=== PATIENT | female | born 2000 | race Caucasian/White ===

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

== ENCOUNTER 2019-02-02 23:22 | Inpatient (IN) ==
[2019-02-02 20:56] LABS: Amphetamine Screen,Urine Negative ng/mL (Cutoff=1000); Barbiturate Screen,Urine Negative ng/mL (Cutoff=200); Benzodiazepines Screen,Urine Negative ng/mL (Cutoff=200); Cannabinoid Screen,Urine Positive ng/mL (Cutoff = 50); Cocaine Screen,Urine Negative ng/mL (Cutoff= 300); Opiate Screen,Urine Negative ng/mL (Cutoff=300); Phencyclidine Screen,Urine Negative ng/mL (Cutoff=25)
[~2019-02-02 23:22] MED LIST: *HR* Nalbuphine 10 MG/ML AMPUL IVP PRN; Famotidine 20 MG/2 ML VIAL IVP PRN; Lidocaine 1% 20 ML MDV INFILT PRN; Metoclopramide 10 MG/2 ML VIAL IVP PRN; Naloxone 0.4 MG/ML INJ IVP PRN; Ondansetron 4 MG/2 ML VIAL IVP PRN; miSOPROStoL 25 MCG TABLET PO PRN
[2019-02-02] MEDS ORDERED: Ringers Solution, Lactated 1,000 ML IVC SCH (23:30)
[2019-02-03 00:03] LABS: Basophils % 0.3 %; Eosinophils # 0.2 K/mcL (0.0-0.6); Eosinophils % 1.5 %; Hematocrit 39.6 % (35.3-44.9); Hemoglobin 13.6 g/dL (11.5-15.4); Immature Granulocytes % 1.3 % (0-4); Lymphocytes # 2.6 K/mcL (0.6-4.6); Lymphocytes % 18.2 %; Mean Corpuscular HGB Conc 34.3 g/dL (31.6-35.5); Mean Corpuscular Hemoglobin 30.2 pg (28.0-33.3); Mean Corpuscular Volume 87.8 fL (83.0-100.0); Mean Platelet Volume 11.4 fL (9.4-12.4); Monocytes # 0.6 K/mcL (0.0-1.3); Monocytes % 4.4 %; Neutrophils # 10.6 K/mcL (1.6-8.9); Platelet Count 233 K/mcL (140-400); Red Blood Count 4.51 M/mcL (3.82-4.97); Red Cell Distribution Width 13.6 % (11.5-14.5); Segmented Neutrophils % 74.3 %; White Blood Count 14.3 K/mcL (4.3-11.1)
[2019-02-03] MEDS ORDERED: Epidural Premix (fent/bupiv) 110 ML EP SCH ×2 (00:15→06:22)
[2019-02-03 00:55] LABS: Chlamydia Trachomatis DNA Ur NOT DETECTED (Not Detect)
[2019-02-03] MEDS ORDERED: Chloroprocaine/PF 20 ML VIAL INFILT ONE (07:24)
[2019-02-03] MEDS ORDERED: *HR* Phenylephrine 10 MG/ML VIAL ONE (07:24)
[2019-02-03] MEDS ORDERED: Oxytocin 20 units/ LR 1000 mL 20 UNIT/1,000 ML BAG IVC ONE ×3 (07:52→11:31)
[2019-02-03] MEDS ORDERED: *HR* Promethazine 25 MG/ML VIAL IVP PRN (08:07)
[2019-02-03] MEDS ORDERED: Ketorolac 30 MG/ML VIAL IVP ONE (08:07)
[2019-02-03] MEDS ORDERED: *HR* OxyCODONE Immed Rel 5 MG TABLET PO PRN (08:07)
[2019-02-03] MEDS ORDERED: Ondansetron 4 MG/2 ML VIAL IVP ONE (08:07)
[2019-02-03] MEDS ORDERED: *HR* Nalbuphine 10 MG/ML AMPUL IV PRN (08:07)
[2019-02-03] MEDS ORDERED: Acetaminophen IV 1,000 MG/100 ML INFUS..BTL IVPB ONE (08:07)
[2019-02-03] MEDS ORDERED: Albuterol 2.5 MG/3 ML NEBULIZER IH ONE (08:07)
[2019-02-03] MEDS ORDERED: Ringers Solution, Lactated 1,000 ML ONE (08:08)
[2019-02-03] MEDS ORDERED: *HR* Oxytocin 10 UNIT/ML VIAL IM ONE (08:11)
[2019-02-03] MEDS ORDERED: *HR* Morphine Sulfate/PF 10 MG/10 ML AMPUL ONE (08:14)
[2019-02-03] MEDS ORDERED: Ondansetron 4 MG/2 ML VIAL ONE (08:16)
[2019-02-03] MEDS ORDERED: *HR* Midazolam HCl 2 MG/2 ML VIAL ONE (08:41)
[2019-02-03] MEDS ORDERED: Ketamine *HR* 500 MG/10 ML MDV ONE (08:43)
[2019-02-03] MEDS ORDERED: Ringers Solution, Lactated 1,000 ML IVC SCH (11:25)
[2019-02-03] MEDS ORDERED: Simethicone 80 MG TAB.CHEW PO PRN (11:25)
[2019-02-03] MEDS ORDERED: Metoclopramide 10 MG/2 ML VIAL IVP PRN (11:25)
[2019-02-03] MEDS ORDERED: Ondansetron 4 MG/2 ML VIAL IVP PRN (11:25)
[2019-02-03] MEDS ORDERED: Naloxone 0.4 MG/ML INJ IVP PRN (11:25)
[2019-02-03] MEDS ORDERED: Rho Immune Globulin 1,500 UNIT SYRINGE IM ONE (11:25)
[2019-02-03] MEDS ORDERED: Sennosides 8.6 MG TABLET PO PRN (11:25)
[2019-02-03] MEDS ORDERED: Oxytocin 20 units/ LR 1000 mL 20 UNIT/1,000 ML BAG IVC SCH ×2 (11:25)
[2019-02-03] MEDS: Ibuprofen 600 MG TABLET PO PRN (16:00)
[2019-02-03] MEDS: *HR* OxyCODONE/APAP 5/325 TABLET PO PRN ×2 (16:00→20:56)
[2019-02-04] MEDS: Ibuprofen 600 MG TABLET PO PRN ×4 (00:45→19:58)
[2019-02-04] MEDS: *HR* OxyCODONE/APAP 5/325 TABLET PO PRN (06:19)
[2019-02-04 06:44] LABS: Basophils % 0.1 %; Eosinophils # 0.1 K/mcL (0.0-0.6); Eosinophils % 0.6 %; Hematocrit 32.8 % (35.3-44.9); Immature Granulocytes % 1.1 % (0-4); Lymphocytes # 1.9 K/mcL (0.6-4.6); Lymphocytes % 10.9 %; Mean Corpuscular HGB Conc 33.8 g/dL (31.6-35.5); Mean Corpuscular Hemoglobin 29.7 pg (28.0-33.3); Mean Corpuscular Volume 87.7 fL (83.0-100.0); Monocytes # 1.1 K/mcL (0.0-1.3); Monocytes % 6.2 %; Neutrophils # 14.2 K/mcL (1.6-8.9); Platelet Count 188 K/mcL (140-400); Red Blood Count 3.74 M/mcL (3.82-4.97); Segmented Neutrophils % 81.1 %; White Blood Count 17.5 K/mcL (4.3-11.1)
[2019-02-04 06:45] LABS: Hemoglobin 11.1 g/dL (11.5-15.4)
[2019-02-04] MEDS: Prenatal Vit/FA 1 EACH TABLET PO SCH (09:14)
[2019-02-04] MEDS ORDERED: BuPROPion XL (24 HR) 150 MG TABLET PO SCH (11:22)
[2019-02-05] MEDS: Ibuprofen 600 MG TABLET PO PRN ×2 (01:59→08:37)
[2019-02-05 08:09] VITALS: BP 130/64
[2019-02-05] MEDS: Prenatal Vit/FA 1 EACH TABLET PO SCH (08:36)
[2019-02-05] MEDS: *HR* OxyCODONE/APAP 5/325 TABLET PO PRN (08:36)
== END 2019-02-05 12:20 | disposition home or self-care (01) | DRG 540 ==
LOC: 1NENULAB → 1NENUOBS 02-03 11:29
PROVIDERS: ADMIT Registered Nurse; ATTEND Registered Nurse

== ENCOUNTER 2019-02-07 19:14 | Observation (INO) ==
--- NOTE | 2019-02-07 20:29 | Emergency Department Note ---
Disposition Clinical Impression: Abscess, Abdominal wall cellulitis Abdominal pain Qualifiers: Abdominal location: generalized Qualified Code(s): R10.84 - Generalized a bdominal pain Sepsis Qualifiers: Sepsis type: sepsis due to unspecified organism Sepsis acute organ dysfunction status: unspecified Qualified Code(s): A41.9 - Sepsis, unspecified organism Disposition: Admitted As Inpatient Condition: Fair Time of Disposition: 01:39 General Adult HPI - General Chief complaint: ED Abdominal Pain Stated complaint: LLE Swelling, Fever Time Seen by Provider: 02/07/19 20:28 Source: patient Limitations: no limitations Nursing Notes Reviewed: Yes Vital Signs Reviewed: Yes - History of Present Illness HPI Narrative: Patient is a 18-year-old female presenting with abdominal pain and left leg swelling. Patient is status post [address] Machuca from [place]. Patient states that she had occasions during or delivery. Patient is currently presenting with new onset for the past 2 days of left leg swelling, greater on the left than the right, she also complains of pain to the posterior aspect of the left leg, no known injury. She was seen at [facility] prior to arrival here, they were concerned for DVT and sent her to our hospital for further evaluation. Patient also states that she has been having some cough with intermittent chest discomfort, not significantly pleuritic in nature. She is also had objective fevers and chills has been taking Tylenol found to be febrile and prior hospital. She also describes significant abdominal discomfort, which is been there since giving , has gotten worse over the past few days, greatest on the right lateral side of her abdomen. She also has a wound VAC over her scar, they are noted to be leydi, she has not noticed much draining, no purulent drainage from this area. Pain Scale: 0 - Related Data Home Medications Medication Instructions Recorded Confirmed Pnv95/Ferrous Fumarate/FA 1 each PO DAILY 02/08/19 02/08/19 [ Vitamin Tablet] Previous Rx's Medication Instructions Recorded BuPROPion XL (24 HR) [Wellbutrin 150 mg PO DAILY #60 tab.er.24h 02/05/19 Xl] Docusate [Colace] 100 mg PO BID #30 capsule 02/05/19 Ferrous Sulfate 325 mg PO 0800 #30 tablet 02/05/19 Ibuprofen [Motrin] 600 mg PO Q6HR PRN #60 tablet 08/29/19 OxyCODONE/APAP 5/325 [Percocet 1 each PO Q4HR PRN 5 Days #20 02/05/19 5/325 MG] tablet Simethicone [Gas-X] 80 mg PO TID PRN tab.chew 02/05/19 Allergies Allergy/AdvReac Type Severity Reaction Status Date / Time No Known Allergies Allergy Verified 06/10/18 13:00 All systems ED: reviewed and negative except as stated. Review of Systems: As Per HPI Constitutional: Reports: fever, chills ENT ED: Denies: congestion Cardiovascular: Denies: chest pain, palpitations, dyspnea on exertion Respiratory: Reports: cough, sputum production. Denies: dyspnea, wheezes Gastrointestinal: Reports: abdominal pain, nausea. Denies: vomiting, diarrhea, hematemesis Genitourinary: Denies: urgency, dysuria, frequency Musculoskeletal: Reports: as per HPI. Denies: back pain Integumentary: Denies: rash Neurological: Denies: headache, weakness, confusion Endocrine: Denies: fatigue Past Medical History - Past Medical History Medical history: Reports: asthma, other Surgical history: Reports: , other (Tonsillectomy) Psychiatric history: Reports: bipolar, depression, PTSD - Social History Smoking Status: Current some day smoker Smokeless Tobacco Status: No Alcohol use: Reports: none Drug use: Reports: none Physical Exam - General Limitations: no limitations General appearance: alert - Head Head exam: atraumatic, normocephalic, normal inspection - Eye Eye exam: Present: normal appearance, PERRL, EOMI - ENT ENT exam: normal exam, normal oropharynx, mucous membranes moist - Neck Neck exam: Present: normal inspection, full ROM, trachea midline - Chest Chest inspection: Present: normal inspection, symmetric chest wall rise - Respiratory Respiratory exam: Present: normal lung sounds bilaterally - Cardiovascular Cardiovascular exam: Present: regular rate, tachycardia, normal heart sounds - Abdominal Exam Abdominal exam: Present: soft, tenderness (Patient has tenderness throughout the right lateral abdomen diffuse throughout the mid abdomen, no guarding or rebound, patient with wound VAC to the mid scar without active drainage. Patient abdomen is a warm, with diffuse erythemato take induration or fluctuance noted). Absent: distention, guarding, rebound - Extremities Exam Extremities exam: Present: tenderness, normal capillary refill, calf tenderness (Patient with significant left greater than right lower leg swelling with posterior tenderness to palpation, no joint laxity or instability, no tenderness with range of motion to the left ankle. Right lower extremity appears within normal limits) - Expanded Lower Extremity Exam Neurovascular/Tendon exam: Absent: motor deficit, sensory deficit, tendon deficit - Back Exam Back exam: Present: normal inspection, full ROM. Absent: tenderness - Neurological Exam Neurological exam: Present: alert, oriented X3 - Psychiatric Psychiatric exam: Present: normal affect, normal mood - Skin Skin exam: Present: warm, dry, intact, normal color Course Course Narrative: Patient is a 18-year-old female who is presenting with abdominal pain and left leg swelling. Patient is postop day 5 for section. Patient currently has a wound VAC in place overlying her section location, without active drainage. Patient also concerned with new onset left leg swelling and pain. She was sent here via [place] for further evaluation. On initial evaluation, patient is febrile with a heart rate of 125, patient overall appears unwell, she is although in no acute distress and appears nontoxic. Initial concern for sepsis given recent intra-abdominal surgery. Patient had CBC, BMP, LFT, lipase as well as urinalysis performed. Blood cultures as well as lactic were also drawn. Patient was initially started on 2 L normal saline. Concern for cardiac as well as intra-abdominal etiology as well as concern for DVTs and left lower leg, CTA of the chest was performed which shows no sign of point her embolism or pneumonia. CT of the abdomen and pelvis does show concern for gas near the wound sites suggesting a possible abscess versus hematoma versus seroma. Given patient's significant abdominal pain tenderness with which what appears to be cellulitic-like changes near the scan as well as critical picture with fever and tachycardia, concern for sepsis with source of intra- abdominal abscess near the wound site. Do feel as that the patient requires further admission and possible surgical intervention by OVERHEAD DISTRIBUTION ENGINEER. Patient was started on Zosyn. Left lower leg ultrasound was negative for SVT or DVT. Do not feel this point in time the patient has endometritis, patient denies any vaginal discharge other than the slight vaginal bleeding, she has no uterine tenderness on my examination. Following a total of 3 L normal saline as well as antibiotic regimen, patient is responsive to fluids, patient is not on hypotensive at any time. Patient is remained alert and oriented 3 with no altered mental state. I did speak with on-call OVERHEAD DISTRIBUTION ENGINEER attending, feels as though the patient best served with hospitalist admission and consult OB, feels though this is most likely seroma versus hematoma and less likely abscess. I did see with the hospitalist team, they are requesting further surgical consult. I did talk to Dr. Charmaine Story, general surgery, states that the patient would require OVERHEAD DISTRIBUTION ENGINEER consult as the patient had recent intervention with . I then spoke again with on-call OVERHEAD DISTRIBUTION ENGINEER attending, Dr. Zheng who has accepted the patient to OVERHEAD DISTRIBUTION ENGINEER service. - Consultations Consultation #1: I did speak with OVERHEAD DISTRIBUTION ENGINEER, Dr. Zheng, states that given the CT abdomen and pelvis as well as the wound VAC placement, believes this is less likely an abscess secondary to , most likely hematoma versus seroma. States that could be endometritis however the patient does not have necessarily fundal or uterine tenderness. States that if the hospitalist team believes this is more concerning for endometritis, Zosyn should be appropriate at this time, however could also consider amp, gent and Clinda. Per OVERHEAD DISTRIBUTION ENGINEER, patient should be admitted to the hospitalist service, and they are able to consult if necessary. Time: 01:18 Consultation #2: I spoke with Dr. Tico Story, states that as this was an OVERHEAD DISTRIBUTION ENGINEER postop concern and possible complication, she would be unable to consult on this patient further. Time: 02:00 Vital Signs Temperature 102.2 F H 02/07/19 19:45 Pulse Rate 129 02/07/19 19:45 Respiratory Rate 18 02/07/19 19:45 Blood Pressure 111/75 02/07/19 19:45 O2 Sat by Pulse Oximetry 95 02/07/19 19:45 Temperature 102.5 F H 02/08/19 04:50 Pulse Rate 110 02/08/19 04:50 Respiratory Rate 16 02/08/19 04:50 Blood Pressure 134/86 02/08/19 04:50 O2 Sat by Pulse Oximetry 96 02/08/19 04:50 Oxygen Delivery Oxygen Delivery Room Air Medical Decision Making - Medical Records Medical records reviewed: Yes I reviewed the patient's medical records. - Lab Data Lab results reviewed: Yes I reviewed the patient's lab results. Result diagrams: 02/07/19 20:31 02/07/19 20:31 Lab Results 02/07/19 02/07/19 02/07/19 Range/Units 20:05 20:05 20:31 WBC 11.7 H (4.3-11.1) K/mcL RBC 3.42 L (3.82-4.97) M/mcL Hgb 9.9 L (11.5-15.4) g/dL Hct 30.0 L (35.3-44.9) % MCV 87.7 (83.0-100.0) fL MCH 28.9 (28.0-33.3) pg MCHC 33.0 (31.6-35.5) g/dL RDW 13.5 (11.5-14.5) % Plt Count 277 (140-400) K/mcL MPV 10.1 (9.4-12.4) fL Immature Gran % 1.8 (0-4) % Seg Neutrophils % 79.2 % Lymphocytes % 9.0 % Monocytes % 7.8 % Eosinophils % 1.9 % Basophils % 0.3 % Neutrophils # 9.3 H (1.6-8.9) K/mcL Lymphocytes # 1.1 (0.6-4.6) K/mcL Monocytes # 0.9 (0.0-1.3) K/mcL Eosinophils # 0.2 (0.0-0.6) K/mcL Basophils # 0.0 (0.0-0.2) K/mcL Sodium (136-145) mEq/L Potassium (3.5-5.1) mEq/L Chloride (98-107) mEq/L Carbon Dioxide (23-29) mEq/L BUN (6-20) mg/dL Creatinine (0.60-1.20) mg/dL Est GFR ( Amer) Est GFR (Non-Af Amer) BUN/Creatinine Ratio (6-26) Glucose (70-105) mg/dL Calculated Osmolality (280-300) Lactic Acid (0.5-2.2) mmol/L Calcium (8.6-10.3) mg/dL Magnesium (1.6-2.6) mg/dL Total Bilirubin (0.3-1.0) mg/dL Direct Bilirubin (0.0-0.2) mg/dL Indirect Bilirubin (0.0-1.2) mg/dL AST (13-39) Units/L ALT (7-52) Units/L Alkaline Phosphatase (34-104) Units/L Serum Total Protein (6.4-8.9) g/dL Albumin (3.5-5.7) g/dL Globulin (2.4-3.5) g/dL Albumin/Globulin Ratio (1.1-2.2) Lipase (11-82) Units/L Beta HCG, Quant (Less than 5) mIU/mL Urine Color Dark Yellow (Yellow) Urine Clarity Cloudy A (Clear) Urine pH 6.0 (5.0-8.0) pH Units Ur Specific [place] > 1.030 H (1.010-1.025) Urine Protein 100 H (Neg-Trace) mg/dL Urine Glucose (UA) Normal (Normal) mg/dL Urine Ketones Trace H (Negative) mg/dL Urine Blood Large H (Negative) Urine Nitrite Negative (Negative) Urine Bilirubin Small H (Negative) Urine Urobilinogen >=8.0 H (Normal) mg/dL Ur Leukocyte Esterase Large H (Negative) Urine Microscopic RBC 15-30 H (0-3) per hpf Urine Microscopic WBC TNTC H (0-3) per hpf Ur Squamous Epith Cells Many H (None-Few) per lpf Urine Bacteria Moderate H (None-Few) per hpf Hyaline Casts None Seen (None-Few) per lpf Ur Culture Indicated? YES A (NO) Urine Test Positive A (Negative) 02/07/19 02/07/19 Range/Units 20:31 20:31 WBC (4.3-11.1) K/mcL RBC (3.82-4.97) M/mcL Hgb (11.5-15.4) g/dL Hct (35.3-44.9) % MCV (83.0-100.0) fL MCH (28.0-33.3) pg MCHC (31.6-35.5) g/dL RDW (11.5-14.5) % Plt Count (140-400) K/mcL MPV (9.4-12.4) fL Immature Gran % (0-4) % Seg Neutrophils % % Lymphocytes % % Monocytes % % Eosinophils % % Basophils % % Neutrophils # (1.6-8.9) K/mcL Lymphocytes # (0.6-4.6) K/mcL Monocytes # (0.0-1.3) K/mcL Eosinophils # (0.0-0.6) K/mcL Basophils # (0.0-0.2) K/mcL Sodium 134 L (136-145) mEq/L Potassium 3.9 (3.5-5.1) mEq/L Chloride 104 (98-107) mEq/L Carbon Dioxide 21 L (23-29) mEq/L BUN 15 (6-20) mg/dL Creatinine 0.47 L (0.60-1.20) mg/dL Est GFR ( Amer) > 60 Est GFR (Non-Af Amer) > 60 BUN/Creatinine Ratio 32 H (6-26) Glucose 107 H (70-105) mg/dL Calculated Osmolality 279 L (280-300) Lactic Acid 0.7 (0.5-2.2) mmol/L Calcium 8.4 L (8.6-10.3) mg/dL Magnesium 1.9 (1.6-2.6) mg/dL Total Bilirubin 0.6 (0.3-1.0) mg/dL Direct Bilirubin 0.2 (0.0-0.2) mg/dL Indirect Bilirubin 0.4 (0.0-1.2) mg/dL AST 13 (13-39) Units/L ALT 10 (7-52) Units/L Alkaline Phosphatase 93 (34-104) Units/L Serum Total Protein 6.3 L (6.4-8.9) g/dL Albumin 3.0 L (3.5-5.7) g/dL Globulin 3.3 (2.4-3.5) g/dL Albumin/Globulin Ratio 0.9 L (1.1-2.2) Lipase < 3 L (11-82) Units/L Beta HCG, Quant 59 H (Less than 5) mIU/mL Urine Color (Yellow) Urine Clarity (Clear) Urine pH (5.0-8.0) pH Units Ur Specific [place] (1.010-1.025) Urine Protein (Neg-Trace) mg/dL Urine Glucose (UA) (Normal) mg/dL Urine Ketones (Negative) mg/dL Urine Blood (Negative) Urine Nitrite (Negative) Urine Bilirubin (Negative) Urine Urobilinogen (Normal) mg/dL Ur Leukocyte Esterase (Negative) Urine Microscopic RBC (0-3) per hpf Urine Microscopic WBC (0-3) per hpf Ur Squamous Epith Cells (None-Few) per lpf Urine Bacteria (None-Few) per hpf Hyaline Casts (None-Few) per lpf Ur Culture Indicated? (NO) Urine Test (Negative) - Radiology Data Radiology results reviewed: Yes I reviewed the patient's radiology results. Chest X-Ray 02/07/19 20:43 IMPRESSION: No acute cardiopulmonary process. D/ / 02/07/2019 21:25:11 Mango Barrera MD / [place] Interpreting Provider: Mango Barrera MD Abdomen/Pelvis CT 02/07/19 20:44 IMPRESSION: 1. Anterior abdominal wound in the patient's pannus has gas and air concerning for possible abscess though this may simply reflect postsurgical hematoma/seroma. 2. Postsurgical sequela in the pelvis not unusual following . No loculated fluid collection, hematoma formation or pneumoperitoneum. No hydronephrosis and visualized portions of the ureters appear unremarkable. 3. Nonspecific simple appearing pelvic ascites is probably reactive. 4. Hepatic steatosis and hepatomegaly. D/ / Huseyin Mercado / Huseyin Mercado Interpreting Provider: Husyein Mercado Chest CTA 02/07/19 20:53 IMPRESSION: No evidence of pulmonary embolism or acute pulmonary abnormality. D/ / Mango Barrera MD / Mango Barrera MD Interpreting Provider: Mango Barrera MD
[2019-02-07] MEDS ORDERED: Isovue-370 500 ML BOTTLE IVP ONE ×2 (20:44→20:53)
[2019-02-07 21:00] LABS: Bilirubin,Urine Small (Negative); Blood,Urine Large (Negative); Clarity,Urine Cloudy (Clear); Color,Urine Dark Yellow (Yellow); Glucose,Urine (UA) Normal (Normal); Ketones,Urine Trace mg/dL (Negative); Leukocyte Esterase,Urine Large (Negative); Nitrite,Urine Negative (Negative); Protein,Urine 100 mg/dL (Neg-Trace); Specific Gravity,Urine > 1.030 (1.010-1.025); Urobilinogen,Urine >=8.0 mg/dL (Normal)
[2019-02-07 21:00] LABS: Basophils % 0.3 %; Eosinophils # 0.2 K/mcL (0.0-0.6); Eosinophils % 1.9 %; Hemoglobin 9.9 g/dL (11.5-15.4); Immature Granulocytes % 1.8 % (0-4); Lymphocytes # 1.1 K/mcL (0.6-4.6); Mean Corpuscular Hemoglobin 28.9 pg (28.0-33.3); Mean Corpuscular Volume 87.7 fL (83.0-100.0); Mean Platelet Volume 10.1 fL (9.4-12.4); Monocytes # 0.9 K/mcL (0.0-1.3); Monocytes % 7.8 %; Neutrophils # 9.3 K/mcL (1.6-8.9); Platelet Count 277 K/mcL (140-400); Red Blood Count 3.42 M/mcL (3.82-4.97); Red Cell Distribution Width 13.5 % (11.5-14.5); Segmented Neutrophils % 79.2 %; White Blood Count 11.7 K/mcL (4.3-11.1)
[2019-02-07 21:02] LABS: Bacteria,Urine Moderate per hpf (None-Few); Hyaline Casts,Urine None Seen per lpf (None-Few); RBC,Urine 15-30 per hpf (0-3); Squamous Epithelial Cell,Urine Many per lpf (None-Few); WBC,Urine TNTC per hpf (0-3)
[2019-02-07] MEDS: 0.9 % Sodium Chloride 1,000 ML IVC SCH ×2 (21:03→22:28)
[2019-02-07 21:15] LABS: BUN/Creatinine Ratio 32 (6-26); Blood Urea Nitrogen 15 mg/dL (6-20); Calcium 8.4 mg/dL (8.6-10.3); Carbon Dioxide 21 mEq/L (23-29); Chloride 104 mEq/L (98-107); Glucose 107 mg/dL (70-105); Osmolality,Calculated 279 (280-300); Potassium 3.9 mEq/L (3.5-5.1); Sodium 134 mEq/L (136-145); eGFR For African Americans > 60; eGFR For Non-African Americans > 60
[2019-02-07] MEDS ORDERED: Piperacillin/Tazobactam 3.375 GM in 0.9 % Sodium Chloride Mini Bag 100 ML IVPB ONE (21:51)
[2019-02-07 22:08] LABS: Alanine Aminotransferase 10 Units/L (7-52); Albumin/Globulin Ratio 0.9 (1.1-2.2); Alkaline Phosphatase 93 Units/L (34-104); Aspartate Amino Transferase 13 Units/L (13-39); Bilirubin,Direct 0.2 mg/dL (0.0-0.2); Bilirubin,Indirect 0.4 mg/dL (0.0-1.2); Bilirubin,Total 0.6 mg/dL (0.3-1.0); Globulin 3.3 g/dL (2.4-3.5); Lipase < 3 Units/L (11-82); Magnesium 1.9 mg/dL (1.6-2.6); Total Protein 6.3 g/dL (6.4-8.9)
[2019-02-07] MEDS ORDERED: 0.9 % Sodium Chloride 1,000 ML IVC ONE (23:37)
--- NOTE | 2019-02-08 01:48 | Emergency Department Note ---
Disposition Clinical Impression: Sepsis, Abscess, Abdominal wall cellulitis Abdominal pain Qualifiers: Abdominal location: generalized Qualified Code(s): R10.84 - Generalized abdominal pain Disposition: Admitted As Inpatient Condition: Fair Referrals: Erin Maradiaga CNP [Primary Care Provider] - Forms: ED Satisfaction Letter, Work/School Release Time of Disposition: 01:51 General Adult HPI - General Chief complaint: ED Abdominal Pain Stated complaint: LLE Swelling, Fever Time Seen by Provider: 02/07/19 20:28 Source: patient Mode of arrival: ambulatory Limitations: no limitations Nursing Notes Reviewed: Yes Vital Signs Reviewed: Yes - History of Present Illness Pain Scale: 3 - Related Data Home Medications Medication Instructions Recorded Confirmed Vitamin Tablet 12/26/18 Previous Rx's Medication Instructions Recorded BuPROPion XL (24 HR) [Wellbutrin 150 mg PO DAILY #60 tab.er.24h 02/05/19 Xl] Docusate [Colace] 100 mg PO BID #30 capsule 02/05/19 Ferrous Sulfate 325 mg PO 0800 #30 tablet 02/05/19 Ibuprofen [Motrin] 600 mg PO Q6HR PRN #60 tablet 02/05/19 OxyCODONE/APAP 5/325 [Percocet 1 each PO Q4HR PRN 5 Days #20 02/05/19 5/325 MG] tablet Simethicone [Gas-X] 80 mg PO TID PRN tab.chew 02/05/19 Allergies Allergy/AdvReac Type Severity Reaction Status Date / Time No Known Allergies Allergy Verified 06/10/18 13:00 Constitutional: Reports: fever, chills ENT ED: Denies: congestion Cardiovascular: Denies: chest pain, palpitations, dyspnea on exertion Respiratory: Reports: cough, sputum production. Denies: dyspnea, wheezes Gastrointestinal: Reports: abdominal pain, nausea. Denies: vomiting, diarrhea, hematemesis Genitourinary: Denies: urgency, dysuria, frequency Musculoskeletal: Reports: as per HPI. Denies: back pain Integumentary: Denies: rash Neurological: Denies: headache, weakness, confusion Endocrine: Denies: fatigue Past Medical History - Past Medical History Medical history: Reports: asthma, other Surgical history: Reports: , other (Tonsillectomy) Psychiatric history: Reports: bipolar, depression, PTSD - Social History Smoking Status: Current some day smoker Smokeless Tobacco Status: No Alcohol use: Reports: none Drug use: Reports: none Physical Exam - General Limitations: no limitations General appearance: alert Course Vital Signs Temperature 102.2 F H 02/07/19 19:45 Pulse Rate 129 02/07/19 19:45 Respiratory Rate 18 02/07/19 19:45 Blood Pressure 111/75 02/07/19 19:45 O2 Sat by Pulse Oximetry 95 02/07/19 19:45 Temperature 100.8 F H 02/08/19 01:17 Pulse Rate 105 02/08/19 01:17 Respiratory Rate 16 02/08/19 01:17 Blood Pressure 125/47 02/08/19 01:17 O2 Sat by Pulse Oximetry 99 02/08/19 01:17 Oxygen Delivery Oxygen Delivery Room Air Medical Decision Making - Lab Data Result diagrams: 02/07/19 20:31 02/07/19 20:31 Lab Results 02/07/19 02/07/19 02/07/19 Range/Units 20:05 20:05 20:31 WBC 11.7 H (4.3-11.1) K/mcL RBC 3.42 L (3.82-4.97) M/mcL Hgb 9.9 L (11.5-15.4) g/dL Hct 30.0 L (35.3-44.9) % MCV 87.7 (83.0-100.0) fL MCH 28.9 (28.0-33.3) pg MCHC 33.0 (31.6-35.5) g/dL RDW 13.5 (11.5-14.5) % Plt Count 277 (140-400) K/mcL MPV 10.1 (9.4-12.4) fL Immature Gran % 1.8 (0-4) % Seg Neutrophils % 79.2 % Lymphocytes % 9.0 % Monocytes % 7.8 % Eosinophils % 1.9 % Basophils % 0.3 % Neutrophils # 9.3 H (1.6-8.9) K/mcL Lymphocytes # 1.1 (0.6-4.6) K/mcL Monocytes # 0.9 (0.0-1.3) K/mcL Eosinophils # 0.2 (0.0-0.6) K/mcL Basophils # 0.0 (0.0-0.2) K/mcL Sodium (136-145) mEq/L Potassium (3.5-5.1) mEq/L Chloride (98-107) mEq/L Carbon Dioxide (23-29) mEq/L BUN (6-20) mg/dL Creatinine (0.60-1.20) mg/dL Est GFR ( Amer) Est GFR (Non-Af Amer) BUN/Creatinine Ratio (6-26) Glucose (70-105) mg/dL Calculated Osmolality (280-300) Lactic Acid (0.5-2.2) mmol/L Calcium (8.6-10.3) mg/dL Magnesium (1.6-2.6) mg/dL Total Bilirubin (0.3-1.0) mg/dL Direct Bilirubin (0.0-0.2) mg/dL Indirect Bilirubin (0.0-1.2) mg/dL AST (13-39) Units/L ALT (7-52) Units/L Alkaline Phosphatase (34-104) Units/L Serum Total Protein (6.4-8.9) g/dL Albumin (3.5-5.7) g/dL Globulin (2.4-3.5) g/dL Albumin/Globulin Ratio (1.1-2.2) Lipase (11-82) Units/L Beta HCG, Quant (Less than 5) mIU/mL Urine Color Dark Yellow (Yellow) Urine Clarity Cloudy A (Clear) Urine pH 6.0 (5.0-8.0) pH Units Ur Specific [place] > 1.030 H (1.010-1.025) Urine Protein 100 H (Neg-Trace) mg/dL Urine Glucose (UA) Normal (Normal) mg/dL Urine Ketones Trace H (Negative) mg/dL Urine Blood Large H (Negative) Urine Nitrite Negative (Negative) Urine Bilirubin Small H (Negative) Urine Urobilinogen >=8.0 H (Normal) mg/dL Ur Leukocyte Esterase Large H (Negative) Urine Microscopic RBC 15-30 H (0-3) per hpf Urine Microscopic WBC TNTC H (0-3) per hpf Ur Squamous Epith Cells Many H (None-Few) per lpf Urine Bacteria Moderate H (None-Few) per hpf Hyaline Casts None Seen (None-Few) per lpf Ur Culture Indicated? YES A (NO) Urine Test Positive A (Negative) 02/07/19 02/07/19 Range/Units 20:31 20:31 WBC (4.3-11.1) K/mcL RBC (3.82-4.97) M/mcL Hgb (11.5-15.4) g/dL Hct (35.3-44.9) % MCV (83.0-100.0) fL MCH (28.0-33.3) pg MCHC (31.6-35.5) g/dL RDW (11.5-14.5) % Plt Count (140-400) K/mcL MPV (9.4-12.4) fL Immature Gran % (0-4) % Seg Neutrophils % % Lymphocytes % % Monocytes % % Eosinophils % % Basophils % % Neutrophils # (1.6-8.9) K/mcL Lymphocytes # (0.6-4.6) K/mcL Monocytes # (0.0-1.3) K/mcL Eosinophils # (0.0-0.6) K/mcL Basophils # (0.0-0.2) K/mcL Sodium 134 L (136-145) mEq/L Potassium 3.9 (3.5-5.1) mEq/L Chloride 104 (98-107) mEq/L Carbon Dioxide 21 L (23-29) mEq/L BUN 15 (6-20) mg/dL Creatinine 0.47 L (0.60-1.20) mg/dL Est GFR ( Amer) > 60 Est GFR (Non-Af Amer) > 60 BUN/Creatinine Ratio 32 H (6-26) Glucose 107 H (70-105) mg/dL Calculated Osmolality 279 L (280-300) Lactic Acid 0.7 (0.5-2.2) mmol/L Calcium 8.4 L (8.6-10.3) mg/dL Magnesium 1.9 (1.6-2.6) mg/dL Total Bilirubin 0.6 (0.3-1.0) mg/dL Direct Bilirubin 0.2 (0.0-0.2) mg/dL Indirect Bilirubin 0.4 (0.0-1.2) mg/dL AST 13 (13-39) Units/L ALT 10 (7-52) Units/L Alkaline Phosphatase 93 (34-104) Units/L Serum Total Protein 6.3 L (6.4-8.9) g/dL Albumin 3.0 L (3.5-5.7) g/dL Globulin 3.3 (2.4-3.5) g/dL Albumin/Globulin Ratio 0.9 L (1.1-2.2) Lipase < 3 L (11-82) Units/L Beta HCG, Quant 59 H (Less than 5) mIU/mL Urine Color (Yellow) Urine Clarity (Clear) Urine pH (5.0-8.0) pH Units Ur Specific [place] (1.010-1.025) Urine Protein (Neg-Trace) mg/dL Urine Glucose (UA) (Normal) mg/dL Urine Ketones (Negative) mg/dL Urine Blood (Negative) Urine Nitrite (Negative) Urine Bilirubin (Negative) Urine Urobilinogen (Normal) mg/dL Ur Leukocyte Esterase (Negative) Urine Microscopic RBC (0-3) per hpf Urine Microscopic WBC (0-3) per hpf Ur Squamous Epith Cells (None-Few) per lpf Urine Bacteria (None-Few) per hpf Hyaline Casts (None-Few) per lpf Ur Culture Indicated? (NO) Urine Test (Negative) Attestation Statement - Attestation Attestation: I have seen this patient with the resident physician, I have personally evaluated this patient. I had reviewed the chart and document dictation by the resident physician and aM in agreement with the information documented by the resident physician. Please see documentation by the resident physician for complete chart including past medical history, family medical history, review of systems, current history and physical and laboratory and imaging studies. I was present for all procedures, provided direct supervision for all procedures, was present for the entirety of all procedures and provided direct guidance during the procedures. Please see documentation by the resident physician for any procedures performed. I have reviewed all interpretations of EKGs, and reviewed all EKGs performed on patient's as well. I have also reviewed reports of imaging as provided by radiology. Patient presents emergency Department with chief complaint of fever left leg pain cough runny nose sputum production and abdominal pain at her incision site. The patient states she had a 5 days ago. She states that the symptoms started over the last 24-48 hours went to urgent care and was sent to the ER. She denies shortness of breath but does complain of chest pain when she coughs. She states she feels like she needs to cough some stuff up but is unable to. She states that the cough started even before delivery of her child and she just has a male urinate. Upon presentation she had findings suggestive of systemic inflammatory response syndrome with the fever and tachycardia heart rate of 229 in triage fever 102.2. She is alert awake talking nontoxic in appearance and in no acute distress, cranial nerves are intact oropharynx is normal lungs are clear, heart is regular tachycardic no murmurs rubs or gallops the abdomen is obese, there is a wound dressing and VAC dressing in place over the lower abdomen, there is erythema on the inferior one third of the abdominal wall which is warm to the touch, without palpable crepitance, without significant skin breakdown without blistering. The abdomen is diffusely mildly tender to palpation of the superpubic abdomen, no rebound guarding or peritoneal sign. Left lower extremity reveals approximately 1-2 cm greater diameter of the left compared to the right calf with some mild tenderness compared to the right side, without warmth erythema or skin breakdown, without Homans sign. Secondary to the patient being 5 days as well as 5 days post surgery, presenting with tachycardia and fever with a chest x-ray that showed no acute abnormality but with a potential risk for a DVT on clinical examination, CT PE protocol was ordered which showed no acute abnormality. A CT scan of the abdomen and pelvis was also ordered to evaluate for any evidence of acute intra- abdominal process, or postsurgical abnormality, an ultrasound of the lower extremity was ordered. CT the abdomen and pelvis showed findings concerning for abdominal wall cellulitis with potential seroma versus early abscess formation. Ultrasound showed no DVT. Laboratory studies demonstrated leukocytosis. Urinalysis suggestive of possible UTI. No lactic acidosis. CAD PROGRAMMER was contacted, who states that they do not believe they should admit this patient that they do not feel that this is a postsurgical complication that she be admitted by them but should be admitted to the hospitalist service. They f eel this is more likely a seroma with some abdominal wall cellulitis and feel that medicine should admit this patient. Hospitalist will be contacted to admit this patient for abdominal wall celluliti s, possible early abscess, and systemic inflammatory response syndrome with fever and tachycardia. Vital signs continued to improve with IV fluids here in the ER. Patient given IV antibiotics and blood cultures were sent. test was still positive, however quantitative hCG of 59 patient w ithout significant bleeding or vaginal complaints, nothing to suggest retained products of conception, she is only 5 days and this needs to be trended down to 0 at is at a level currently that would be expected with 5 days . Patient without significant vaginal complaints to suggest endometritis..
[2019-02-08] MEDS ORDERED: Vancomycin 1,750 MG in 0.9 % Sodium Chloride 250 ML IVPB SCH (03:00)
--- NOTE | 2019-02-08 04:21 | OB/GYN History & Physical ---
Date of Encounter: 02/09/19 Time of Encounter: 04:18 Assessment and Plan (1) Abdominal pain Current visit: Yes Status: Acute 18yo s/p emergent pLTCS at 40wks [place] for NRFWB who presents on POD#5 with concern for endometritis 1. Concern for endometritis - pLTCS at term for NRFWB, 9cm prior to delivery - fevers/chills, documented fever to 102F - denies vaginal bleeding, odorous vaginal discharge - patient with wound vac on abdominal incision - CT A/P performed by ED with concern for gas along incision line - this is normal 2/2 recent wound incision and vacuum along the wound - will remove wound vac at time of admission and probe the incision to r/o necrotizing faciitis - start triple ABx therapy: AMP/GENT/CLINDA - admission under observation, will repeat labs q24hr and transition to PO ABx when patient is no longer febrile Dispo: Admission with concern for endometritis. Triple ABx therapy ordered. MD RASHIDA Qualifiers: Abdominal location: generalized Qualified Code(s): R10.84 - Generalized abdominal pain History of Present Illness Chief complaint: 18yo readmission for endometritis HPI: Ms. Thorne is a 18 year old female s/p pLTCS at term for NRFWB who presents with fevers to 102F, abdominal tenderness, fever/chills. POD#5 from an emergent pLTCS at term with DR. Chen. Patient with wound vac in place, concern for "gas" or "hematoma" along sight of incision. Denies vaginal bleeding. Patient without known drug allergies. AMP/GENT/CLINDA discussed for endometritis picture. Past Med Surg Social Fam HX - Past Medical History Medical history: asthma, other Additional medical history: gallstones with this Psychiatric history: bipolar, depression, PTSD - Past Surgical History Surgical History: , other (Tonsillectomy) Additional surgical history: tubes in ears, T&A - Social History Smoking Status: Current some day smoker Smokeless Tobacco Status: No Alcohol use: none Drug use: none - Family History Father Living Status: Still Living Hx Family Cardiac Disorders: Yes (hypertension) Obstetrical History - Pregnancies : 1 Para: 1 Term: 1 : 0 Ab's: 0 Livin Medications and Allergies BuPROPion XL (24 HR) [Wellbutrin Xl] 150 mg PO DAILY #60 tab.er.24h 02/05/19 [Rx] Docusate [Colace] 100 mg PO BID #30 capsule 02/05/19 [Rx] Ferrous Sulfate 325 mg PO 0800 #30 tablet 02/05/19 [Rx] Ibuprofen [Motrin] 600 mg PO Q6HR PRN #60 tablet 02/05/19 [Rx] OxyCODONE/APAP 5/325 [Percocet 5/325 MG] 1 each PO Q4HR PRN 5 Days #20 tablet 02/05/19 [Rx] Simethicone [Gas-X] 80 mg PO TID PRN tab.chew 02/05/19 [Rx] Pnv95/Ferrous Fumarate/FA [ Vitamin Tablet] 1 each PO DAILY 02/08/19 [ History] Allergy/AdvReac Type Severity Reaction Status Date / Time No Known Allergies Allergy Verified 06/10/18 13:00 Exam - Vital Signs Vital signs: Initial Vital Signs Temp Pulse Resp BP Pulse Ox 102.2 F H 129 18 111/75 95 02/07/19 19:45 02/07/19 19:45 02/07/19 19:45 02/07/19 19:45 02/07/19 19:45 - Constitutional Constitutional: well developed, well nourished, no acute distress, average body habitus - HEENT HEENT: Normocephaly, Mucus Membranes Moist - Lungs Respiratory exam: CTAB - Cardiovascular Cardiovascular exam: RRR Results Result Diagrams: 02/09/19 05:20 02/07/19 20:31 Abnormal lab results WBC 11.7 K/mcL (4.3-11.1) H 02/07/19 20:31 RBC 3.42 M/mcL (3.82-4.97) L 02/07/19 20:31 Hgb 9.9 g/dL (11.5-15.4) L 02/07/19 20:31 Hct 30.0 % (35.3-44.9) L 02/07/19 20:31 Neutrophils # 9.3 K/mcL (1.6-8.9) H 02/07/19 20:31 Sodium 134 mEq/L (136-145) L 02/07/19 20:31 Carbon Dioxide 21 mEq/L (23-29) L 02/07/19 20:31 Creatinine 0.47 mg/dL (0.60-1.20) L 02/07/19 20:31 BUN/Creatinine Ratio 32 (6-26) H 02/07/19 20:31 Glucose 107 mg/dL (70-105) H 02/07/19 20:31 Calculated Osmolality 279 (280-300) L 02/07/19 20:31 Calcium 8.4 mg/dL (8.6-10.3) L 02/07/19 20:31 Serum Total Protein 6.3 g/dL (6.4-8.9) L 02/07/19 20:31 Albumin 3.0 g/dL (3.5-5.7) L 02/07/19 20: Albumin/Globulin Ratio 0.9 (1.1-2.2) L 02/07/19 20:31 Lipase < 3 Units/L (11-82) L 02/07/19 20:31 Beta HCG, Quant 59 mIU/mL (Less than 5) H 02/07/19 20:31 Urine Clarity Cloudy (Clear) A 02/07/19 20:05 Ur Specific [place] > 1.030 (1.010-1.025) H 02/07/19 20:05 Urine Protein 100 mg/dL (Neg-Trace) H 02/07/19 20:05 Urine Ketones Trace mg/dL (Negative) H 02/07/19 20:05 Urine Blood Large (Negative) H 02/07/19 20:05 Urine Bilirubin Small (Negative) H 02/07/19 20:05 Urine Urobilinogen >=8.0 mg/dL (Normal) H 02/07/19 20:05 Ur Leukocyte Esterase Large (Negative) H 02/07/19 20:05 Urine Microscopic RBC 15-30 per hpf (0-3) H 02/07/19 20:05 Urine Microscopic WBC TNTC per hpf (0-3) H 02/07/19 20:05 Ur Squamous Epith Cells Many per lpf (None-Few) H 02/07/19 20:05 Urine Bacteria Moderate per hpf (None-Few) H 02/07/19 20:05 Ur Culture Indicated? YES (NO) A 02/07/19 20:05 Urine Test Positive (Negative) A 02/07/19 20:05 All other labs normal.
[2019-02-08] MEDS ORDERED: Gentamicin 100 MG in 0.9 % Sodium Chloride 100 ML IVPB ONE (05:00)
[2019-02-08] MEDS: *HR* OxyCODONE/APAP 5/325 TABLET PO PRN ×2 (07:51→18:57)
[2019-02-08] MEDS ORDERED: Ondansetron 4 MG/2 ML VIAL IVP PRN (10:04)
[2019-02-08] MEDS: Ampicillin 2 GM in 0.9 % Sodium Chloride Mini Bag 100 ML IVPB SCH ×4 (10:47→21:14)
[2019-02-08] MEDS: Ringers Solution, Lactated 1,000 ML IVC SCH ×2 (10:48→21:16)
[2019-02-08 11:43] LABS: Hematocrit 30.6 % (35.3-44.9); Hemoglobin 10.3 g/dL (11.5-15.4); Mean Corpuscular HGB Conc 33.7 g/dL (31.6-35.5); Mean Corpuscular Hemoglobin 29.7 pg (28.0-33.3); Mean Corpuscular Volume 88.2 fL (83.0-100.0); Platelet Count 285 K/mcL (140-400); Red Blood Count 3.47 M/mcL (3.82-4.97); Red Cell Distribution Width 13.5 % (11.5-14.5); White Blood Count 16.7 K/mcL (4.3-11.1)
[2019-02-08] MEDS: Clindamycin 900 MG/50 ML 900 MG/50 ML IV.SOLN IVPB SCH ×2 (12:07→18:57)
[2019-02-08] MEDS ORDERED: Scopolamine Patch 1.5 MG PATCH.TD72 TD SCH (14:15)
[2019-02-08] MEDS: Gentamicin 100 MG in 0.9 % Sodium Chloride 100 ML IVPB SCH ×2 (17:00→23:11)
[2019-02-08] MEDS: Ondansetron 4 MG/2 ML VIAL IVP PRN (18:50)
[2019-02-09] MEDS: Ampicillin 2 GM in 0.9 % Sodium Chloride Mini Bag 100 ML IVPB SCH ×2 (01:05→06:23)
[2019-02-09] MEDS: Clindamycin 900 MG/50 ML 900 MG/50 ML IV.SOLN IVPB SCH (02:04)
[2019-02-09 05:44] LABS: Hematocrit 26.6 % (35.3-44.9); Hemoglobin 8.8 g/dL (11.5-15.4); Mean Corpuscular HGB Conc 33.1 g/dL (31.6-35.5); Mean Corpuscular Hemoglobin 28.9 pg (28.0-33.3); Mean Corpuscular Volume 87.5 fL (83.0-100.0); Platelet Count 293 K/mcL (140-400); Red Blood Count 3.04 M/mcL (3.82-4.97); Red Cell Distribution Width 13.2 % (11.5-14.5); White Blood Count 15.5 K/mcL (4.3-11.1)
[2019-02-09] MEDS: Ondansetron 4 MG/2 ML VIAL IVP PRN (07:17)
[2019-02-09] MEDS: Gentamicin 100 MG in 0.9 % Sodium Chloride 100 ML IVPB SCH (07:52)
[2019-02-09] MEDS: Ringers Solution, Lactated 1,000 ML IVC SCH ×2 (07:53→18:00)
--- NOTE | 2019-02-09 09:02 | OB/GYN Progress Note ---
Date of Encounter: 02/09/19 Time of Encounter: 08:55 - Assessment and Plan (1) Abdominal pain Current Visit: Yes Status: Acute 18yo s/p emergent pLTCS at 40wks [place] for NRFWB who presents on POD#6 with concern for wound cellulitis, draining seroma. 1. Wound cellulitis - draining seroma appreciated at 0500 this morning - patient currently on IV ABx: triple therapy for endometritis, this was transitioned to IV vanc/zosyn - afebrile overnight, denies fevers and chills per patient but is very nauseated with poor PO intake - will continue mIVF at 125mL/HR until able to tolerate po with n/v/d - CT A/P performed by ED with concern for gas along incision line (performed on 02/07) - wound vac removed on POD#5 to exam the wound (at that time did not appear infected but abdomen was erythematous) - patient to be admitted to service for IV ABx therapy, drained seroma - packing daily, currently with 1" iodoform packing tape - cultures taken at time of draining, will f/u on cultures - if afebrile for 24hr on this regimen, OK to transition to PO ABx - will need to be DC with daily packing and weekly follow up with Dr. Chen Dispo: Admission to service for wound infection/seroma draining. Vanc/Zosyn to be continued MD RASHIDA Qualifiers: Abdominal location: generalized Qualified Code(s): R10.84 - Generalized abdominal pain Subjective - Subjective Principal diagnosis: seroma Interval history: 18yo s/p pLTCS, POD#6, emergent delivery for NRFWB; admitted to [employer] service with seroma/absess inferior to skin incision. Patient with release of sero-sanguinous leaking from the R of the incision. Minimal purulence appreciated with expression of seroma upon arrival today. ~200cc per RN overnight of fluid spontaneously leaking. Upon examination of patient by me at 0800 (lawrence lombardo MD), I was able to see the serous fluid. Using sterile technique, I removed all of the leydi along the pfannenstiel skin incision. I was able to probe ~2cm deep and 3.5cm long a R angle defect in the pfannenstiel skin incision. No purulence appreciated. I was unable to probe deep to the fascial incision as the fascia was found to be intact. USing 1" iodoform packing tape, we packed the wound. We did teach the patient how this was done as she will likely need assistance holding up the pannus while repacking in the future. She is aware we will be doing this at least 1x daily. The patient remained stable overnight with normal VS. Denies v/d however she does report nausea. SHe has not been able to tolerate any PO. Patient currently on triple ABx therapy with concern for endometritis. After seeing the patient and examining her wound incision, it is now very obvious that this is not a ENDOMETRITIS picture and that this is a wound cellulitis/seroma. We will transition the patient back to vancomycin and zosyn at this time. Patient reports: voiding normally, pain well controlled, appetite poor, nauseated Objective - Vital Signs Latest vital signs: Vital Signs Temp Pulse Resp BP Pulse Ox 02/09/19 04:43 98.9 F 90 16 104/57 97 02/09/19 01:27 99.7 F H 84 15 121/68 96 02/08/19 21:22 98.6 F 94 16 113/70 98 02/08/19 17:06 98.6 F 93 16 132/85 98 02/08/19 14:00 98.6 F 88 16 140/79 97 02/08/19 12:12 98.3 F 105 96 142/59 Intake and Output 02/08/19 02/09/19 02/09/19 23:59 07:59 15:59 Intake Total 1300 / 3900 1352.5 / 1352.5 Output Total 1000 / 1300 250 / 250 Balance 300 / 2600 1102.5 / 1102.5 Intake: IV Fluids 1300 / 3900 1352.5 / 1352.5 Lactated Ringers 1,000 ML @ 125 900 / 900 1000 / 1000 mls/hr IVC .Q8H [facility] Rx#: [id number] Ampicillin 2 GM In 0.9 % Sodium 200 / 300 200 / 200 Chloride (Mini-Bag +) 100 ML @ 200 mls/hr IVPB Q4HR [facility] Rx#: [id number] Cleocin Premix 900 MG/50 ML 900 100 / 100 50 / 50 mg In 50 ml @ 50 mls/hr IVPB Q8HR [facility] Rx#:[id number] Garamycin 100 MG In 0.9 % 100 / 100 102.5 / 102.5 Sodium Chloride 100 ML @ 98.558 mls/hr IVPB Q8H [facility] Rx#: [id number] Oral 0 / 0 Output: Urine 900 / 1200 Other 100 / 100 250 / 250 Other: Stool Characteristics Normal for Patient # Voids 2 - I&O's I&O's: Intake & Output 02/06/19 02/07/19 02/08/19 02/09/19 23:59 23:59 23:59 23:59 Intake Total 1100 / 1100 3900 / 3900 1352.5 / 1352.5 Output Total 1300 / 1300 250 / 250 Balance 1100 / 1100 2600 / 2600 1102.5 / 1102.5 Weight 108.409 kg - Exam Extremities: Present: normal Abdomen: Present: soft, tenderness Incision OB: Present: erythematous, edematous, skin , warm Comments: Patient with pfannenstiel skin incision, leydi removed at bedside today on POD#6. Leaking seroma from the R angle of the pfannenstiel skin incision. Probed with qtip (sterile) finding ~2cm x 3.5cm pocket. No megha purulence appreciated, only serosanguinous fluid. Remaining incision was well healed and intact. ~3.5cm-4cm defect OPENED on the R angle. Packing was performed at bedside with 1" iodoform packing tape. - Labs Labs: Abnormal lab results WBC 15.5 K/mcL (4.3-11.1) H 02/09/19 05:20 RBC 3.04 M/mcL (3.82-4.97) L 02/09/19 05:20 Hgb 8.8 g/dL (11.5-15.4) L D 02/09/19 05:20 Hct 26.6 % (35.3-44.9) L 02/09/19 05:20 Neutrophils # 9.3 K/mcL (1.6-8.9) H 02/07/19 20:31 Sodium 134 mEq/L (136-145) L 02/07/19 20:31 Carbon Dioxide 21 mEq/L (23-29) L 02/07/19 20:31 Creatinine 0.47 mg/dL (0.60-1.20) L 02/07/19 20:31 BUN/Creatinine Ratio 32 (6-26) H 02/07/19 20:31 Glucose 107 mg/dL (70-105) H 02/07/19 20:31 Calculated Osmolality 279 (280-300) L 02/07/19 20:31 Calcium 8.4 mg/dL (8.6-10.3) L 02/07/19 20:31 Serum Total Protein 6.3 g/dL (6.4-8.9) L 02/07/19 20: Albumin 3.0 g/dL (3.5-5.7) L 02/07/19 20: Albumin/Globulin Ratio 0.9 (1.1-2.2) L 02/07/19 20: Lipase < 3 Units/L (11-82) L 02/07/19 20:31 Beta HCG, Quant 59 mIU/mL (Less than 5) H 02/07/19 20:31 Urine Clarity Cloudy (Clear) A 02/07/19 20:05 Ur Specific [place] > 1.030 (1.010-1.025) H 02/07/19 20:05 Urine Protein 100 mg/dL (Neg-Trace) H 02/07/19 20:05 Urine Ketones Trace mg/dL (Negative) H 02/07/19 20:05 Urine Blood Large (Negative) H 02/07/19 20:05 Urine Bilirubin Small (Negative) H 02/07/19 20:05 Urine Urobilinogen >=8.0 mg/dL (Normal) H 02/07/19 20:05 Ur Leukocyte Esterase Large (Negative) H 02/07/19 20:05 Urine Microscopic RBC 15-30 per hpf (0-3) H 02/07/19 20:05 Urine Microscopic WBC TNTC per hpf (0-3) H 02/07/19 20:05 Ur Squamous Epith Cells Many per lpf (None-Few) H 02/07/19 20:05 Urine Bacteria Moderate per hpf (None-Few) H 02/07/19 20:05 Ur Culture Indicated? YES (NO) A 02/07/19 20:05 Urine Test Positive (Negative) A 02/07/19 20:05 Consult Discharge Plan - Plan Referrals: Erin Maradiaga, NGOZI [Primary Care Provider] -
[2019-02-09 10:09] LABS: BUN/Creatinine Ratio 24 (6-26); Blood Urea Nitrogen 12 mg/dL (6-20); Calcium 8.1 mg/dL (8.6-10.3); Carbon Dioxide 25 mEq/L (23-29); Chloride 104 mEq/L (98-107); Glucose 106 mg/dL (70-105); Osmolality,Calculated 286 (280-300); Potassium 3.7 mEq/L (3.5-5.1); Sodium 138 mEq/L (136-145); eGFR For African Americans > 60; eGFR For Non-African Americans > 60
[2019-02-09] MEDS ORDERED: *HR* Midazolam HCl 2 MG/2 ML VIAL ONE (13:04)
[2019-02-09] MEDS ORDERED: *HR* Propofol 200 MG/20 ML VIAL IVP ONE (13:04)
[2019-02-09] MEDS ORDERED: Lidocaine -MPF 2% 2 ML VIAL ONE (13:05)
[2019-02-09] MEDS ORDERED: Ondansetron 4 MG/2 ML VIAL ONE (13:05)
[2019-02-09] MEDS ORDERED: *HR* FentaNYL (PF) 100 MCG/2 ML VIAL ONE ×2 (13:05→15:23)
[2019-02-09] MEDS ORDERED: *HR* Succinylcholine 200 MG/10 ML VIAL IVP ONE (13:05)
[2019-02-09] MEDS ORDERED: Lidocaine HCL 4 ML Topical Solution (Laryng-O-Jet Kit Sterile Pak) TP ONE (13:05)
[2019-02-09] MEDS ORDERED: Dexamethasone 4 MG/ML VIAL ONE (13:05)
--- NOTE | 2019-02-09 13:40 | Anesthesia Evaluation PreOp ---
Date of Encounter: 02/09/19 Time of Encounter: 13:40 - Past History Planned Operation: Repair Wound Dehiscence Cardiac History: Denies any Significant Hx Pulmonary History: Asthma MEDICAL INTERPRETER History: Denies Any Significant HX Other Medical History: Other (PTSD Bipolar [place]) Anesthesia History: No Prior Anesthetic Complications : No Alcohol Use: none Drug use: none Medications and Allergies BuPROPion XL (24 HR) [Wellbutrin Xl] 150 mg PO DAILY #60 tab.er.24h 02/05/19 [Rx] Docusate [Colace] 100 mg PO BID #30 capsule 02/05/19 [Rx] Ferrous Sulfate 325 mg PO 0800 #30 tablet 02/05/19 [Rx] Ibuprofen [Motrin] 600 mg PO Q6HR PRN #60 tablet 02/05/19 [Rx] OxyCODONE/APAP 5/325 [Percocet 5/325 MG] 1 each PO Q4HR PRN 5 Days #20 tablet 02/05/19 [Rx] Simethicone [Gas-X] 80 mg PO TID PRN tab.chew 02/05/19 [Rx] Pnv95/Ferrous Fumarate/FA [ Vitamin Tablet] 1 each PO DAILY 02/08/19 [History] Allergy/AdvReac Type Severity Reaction Status Date / Time No Known Allergies Allergy Verified 06/10/18 13:00 - Meds/Allergy Pre-op Review Medications Reviewed: Yes Allergies Reviewed: Yes Beta Blockers on Current Med List: No Anesthesia Results - Labs 02/09/19 05:20 02/09/19 09:35 Anesthesia Exam Vital Signs/O2 Sat/Glucose, Most Current Temp Pulse Pulse Resp BP Pulse Ox 02/09/19 11:30 97 16 02/09/19 09:46 98.5 F 75 75 12 111/61 96 Height: 4'11 Weight: 239 lbs NPO (# of Hours): MN - HEENT Pupil (Motor): Pupils equal, EOMI Mallampati: II Teeth: Normal Oral Opening: Greater than 3 - MEDICAL INTERPRETER LOC: Oriented MEDICAL INTERPRETER Motor: Normal RUE, Normal LUE, Normal RLE, Normal LLE, Normal Face MEDICAL INTERPRETER Sensory: Normal: RUE, LUE, RLE, LLE, Face - Cardiac Rhythm: Regular Murmur: None JVD: No Carotid Bruit: No - Pulmonary Breath Sounds: bilateral Clear Respiratory Effort: Symmetrical Anesthesia Assess/Plan ASA Score: 3 ([place] Asthma) Level of consciousness: Cooperative, Oriented Anesthetic Plan: General Autologous Blood: No Monitoring Plan: Standard Monitors Recovery Plan: PACU (Discussed GA, agrees to proceed)
[2019-02-09] MEDS ORDERED: Ondansetron 4 MG/2 ML VIAL IVP ONE (13:42)
[2019-02-09] MEDS ORDERED: *HR* OxyCODONE Immed Rel 5 MG TABLET PO PRN (13:42)
[2019-02-09] MEDS ORDERED: *HR* Promethazine 25 MG/ML VIAL IVP PRN (13:42)
[2019-02-09] MEDS ORDERED: Albuterol 2.5 MG/3 ML NEBULIZER IH ONE (13:46)
[2019-02-09] MEDS ORDERED: Albuterol 2.5 MG/3 ML NEBULIZER ONE (13:49)
[2019-02-09] MEDS ORDERED: Famotidine 20 MG/2 ML VIAL ONE (13:49)
[2019-02-09] MEDS ORDERED: Acetaminophen IV 1,000 MG/100 ML INFUS..BTL ONE (13:49)
[2019-02-09] MEDS ORDERED: Bupivacaine/EPI 1:200k 0.25%PF 30 ML VIAL ONE (14:07)
[2019-02-09] MEDS ORDERED: Neostigmine Methylsulfate 3 MG/3 ML SYRINGE ONE (15:54)
[2019-02-09] MEDS ORDERED: *HR* HYDROMORPHONE 2 MG/ML VIAL ONE (15:57)
--- NOTE | 2019-02-09 16:33 | Event Note ---
Date of Encounter: 02/09/19 Time of Encounter: 12:30 CALLED TO SEE PATIENT AT BEDSIDE FOR COMPLETE SATURATION OF INCISIONAL WOUND PACKING. ONCE AT BEDSIDE, ABLE TO APPRECIATE AT LEAST 200CC OF PERITONEAL FLUID, NO PURULENCE OR BLEEDING, WEEPING FROM THE RIGHT ANGLE OF THE OPEN DEFECT. WE AGAIN, PROBED, USING STERILE TECHNIQUE, AND WAS ABLE TO NEARLY HUB THE STERILE QTIP ALONG THE LENGTH OF 2-3CM. OUR CONCERN AT THIS TIME IF FOR WOUND DEHISCENCE WITH ACTIVE LEAKING OF PERITONEAL FLUID. THIS IS CAUSE FOR SURGICAL INTERVENTION SOON POSSIBLE. STILL WITH ERYTHEMA EXTENDING TO THE UMBILICUS. NO PURULENCE. PATIENT STILL WITH MINIMAL TO NO APPETITE. CALL WAS MADE TO ANESTHESIA AND PATIENT WAS ADDED ON TO MAIN OR SCHEDULE FOR PFANNENSTIEL WOUND INCISION OPENING AND WOUND DEBRIDEMENT WITH CONCERN FOR WOUND DEHISCENCE. SEE OPERATIVE REPORT FOR DETAILS TO COME. MD RASHIDA
--- NOTE | 2019-02-09 16:37 | Anesthesia Evaluation Post Op ---
Date of Encounter: 02/09/19 Time of Encounter: 16:35 - Vital Signs Vital Signs: Vital Signs/O2 Sat/Glucose, Most Current Temp Pulse Resp BP Pulse Ox 02/09/19 16:28 76 18 116/71 94 02/09/19 16:18 79 20 117/69 94 02/09/19 16:08 98.6 F 90 26 112/57 97 02/09/19 13:49 97.9 F 69 16 129/80 95 - Lungs Lungs: Clear Ascult./Percussion - Airway Airway: Non-obstructed - Cardiovascular Regular Rate - Mental Status Mental Status: Alert & Oriented, Answers Appropriately - Pain Pain Scale: 1 - Nausea Vomiting Nausea Vomiting: Not Present - Hydration Hydration: Ice chips - Discharge PostOp Status: Transfer Patient to floor
--- NOTE | 2019-02-09 16:39 | OB/GYN Procedure Note ---
OB-BANQUET ATTENDANT: Procedure - Diagnosis Date of procedure: 02/09/19 Pre-op diagnosis: WOUND DEHISCENCE Post-op diagnosis: same - Procedure Procedure: WOUND DEBRIDEMNET OF FASCIA Surgeon: Ileana Spencer Was there an medical technician assistant present: Yes Physician Office Secretary: Jocelyn Das Anesthesia provider: Eros Peraza Anesthesia Type: General Estimated blood loss (cc): 5 Fluids: crystalloid Procedure Complications: WOUND DEHISCENCE AND WOUND DEBRIDEMENT, WOUND VAC PLACED FOR SECONDARY CLOSURE. Specimens collected: NONE Disposition: PACU Findings: WOUND DEHISCENCE, WOUND NECROSIS ALONG THE FASCIA EDGES, AVASCULARLY DUSK APPEARING SUBCUTANEOUS TISSUE. Narrative: OPERATIVE REPORT: DATE: 02/09/2019 PATIENT NAME: ODALYS ALONZO : 2000 SURGEON: ILEANA SPENCER MA MEDICAL TECHNICIAN ASSISTANT SURGEON: JOCELYN DAS MD PROCEDURE: WOUND DEBRIDEMENT PREOPERATIVE DIAGNOSIS: 1. WOUND DEHISCENCE POSTOPERATIVE DIAGNOSIS: 1. WOUND DEHISCENCE 2. WOUND INFECTION 3. NECROSIS OF FASCIAL EDGES EBL: 5ML (MINIMAL) UOP: BHATTI IN PLACE IVF: 1000ML CONSENT DETAILS: PATIENT IS POD#6 S/P PLTCS AT TERM FOR NRFWB, DILATED TO 9CM WITH MECONIUM STAINED FLUID. PFANNENSTIEL SKIN AND LOW TRANSVERSE DELIVERY WAS PERFORMED AT THAT TIME. SKIN CLOSED BY IVANNA WITH EMY DRESSING PLACED TO SUCTION. PATIENT WAS DISCHARGED TO HOME AND READMITTED TO ON POD#[address] SCAN RESULTS CONCERNING FOR ABDOMINAL AIR VERSUS ABSCESS ALONG THE PFANNENSTIEL SKIN INCISION. EMY WAS REMOVED UPON ADMISSION TO [facility]QUET ATTENDANT/ SERVICE. ABX WERE TRANSITIONED FROM VANC/ZOSYN TO IV AMP/GENT/CLINDA WITH CONCERN FOR POTENTIAL ENDOMETRITIS. ON POD#6, PATIENT WAS LEAKING COPIOUS AMOUNTS OF NON-PURULENT SERO-SANGUINOUS APPEARING FLUID FROM HER R ANGLE OF INCISION, ~400ML DOCUMENTED. IVANNA WERE REMOVED AND THE LINING FASCIA WAS PROBED WITH A R ANGLED DEFECT APPRECIATED. WE ATTEMPTED TO PACK HER INCISION ON THE R HOWEVER SHE CONTINUED TO LEAK PERITONEAL APPEARING FLUID. IT WAS AT THIS TIME WE WERE ABLE TO PROBE A DEFECT GREATER THAN 8CM AT THE R ANGLE OF THE INCISION. PATIENT WAS TRANSITIONED BACK TO VANC/ZOSYN AND CONSENT WAS SIGNED FOR WOUND DEBRIDEMENT FOR LIKELY WOUND DEHISCENCE AND INFECTION. FAMILY WAS CONTACTED AND ANESTHESIA WAS MADE AWARE. PROCEDURE DETAILS: PATIENT WAS TAKEN TO THE OPERATING ROOM WHERE GENERAL ANESTHESIA WAS FOUND TO BE ADEQUATE. TIME OUT WAS PERFORMED AND WE OPENED THE REMAINDER OF THE PFANNENSTIEL SKIN INCISION USING A SCALPEL. WE THEN CONTINUED TO DEBRIDE THROUGH DUSKY, AVASCULAR SUBCUTANEOUS TISSUES TO THE LEVEL OF THE FASCIA WHICH WAS NEARLY COMPLETELY DEHISCENT AT THE MIDLINE WITH ACTIVE PERITONEAL DRAINAGE. NO PURULENCE WAS APPRECIATED. USING GINI CLAMPS, WE OUTLINED VIABLE FASICAL TISSUE INCLUDING THE LATERAL ANGLES. WE BEGAN TO DEBRIDE THE AVASCULAR, DARK APPEARING ADIPOSE TISSUE WHILE ALSO TRIMMING THE FASCIAL LINING BOTH ALONG THE SUPERIOR AND INFERIOR PFANNENSTIEL INCISION OF THE FASCIA. DR. DAS WAS CALLED IN AT THIS TIME FOR ASSISTANCE WE NEEDED ANOTHER PHYSICIAN TO AID IN APPROPRIATE VISUALIZATION WE WERE OVER 6CM DEEP IN ADIPOSE TISSUE WITH EXTENDING ANGLES ON EITHER SIDE THAT REQUIRED AN MEDICAL TECHNICIAN ASSISTANT FOR COMPLETION OF DEBRIDEMENT AND WOUND CLOSURE (FASICAL CLOSURE). DR. DAS WAS ABLE TO CURBSIDE GENERAL ANESTHESIA REGARDING THIS PATIENT WE WERE GIVEN RECOMMENDATIONS FOR A PROBABLE WOUND VACUUM TO BE PLACED WITH CLOSURE BY SECONDARY INTENTION PENDING APPEARANCE AND HEALTH OF SUBCUTANEOUS AND FASCIAL TISSUE. WE CONTINUED TO DEBRIDE TISSUE UNTIL WE COULD APPRECIATE HEALTHY, BLEEDING SUBCUTANEOUS TISSUE AND TENSILE FASCIA. WE WASHED THE ABDOMEN 4X OVER USING 1G OF ANCEF INFUSED NORMAL SALINE. AFTER THE WASHOUT, WE BEGAN OUR FASCIAL CLOSURE. FROM EITHER ANGLE, WE USED LOOP 0-PDS SUTURE, GRASPING HEALTHY, GENEROUS FASCIAL TISSUE FROM BOTH THE SUPERIOR AND INFERIOR FASCIA. THIS WAS COMPLETED USING A TOTAL OF TWO LOOP PDS SUTURES FROM EITHER ANGLE, IN A RUNNING FASHION. WE MET AT MIDLINE AND TIED ONE LOOP 0-PDS DOWN, WHILE CONTINUING THE OTHER PAST MIDLINE TO ENSURE MIDLINE COVERAGE AND COMPLETE CLOSURE OF TISSUE. WE PROBED THIS TISSUE AND FOUND NO DEFECT. WE AGAIN, BEGAN TO DEBRIDE REMAINING AVASCULAR TISSUE ALONG THE 6CM DEEP SUBCUTANEOUS WOUND THAT WAS NOW SUPERIOR TO THE FASCIAL CLOSURE. WE PERFORMED OUR FINAL WASHOUT USING ANCEF INFUSED NORMAL SALINE. OUR BIGGEST CONCERN AT THIS TIME WAS CLOSURE OF THE SUBCUTANEOUS TISSUE AND PERSISTENT INFECTION. DECISION WAS MADE TO PLACE A WOUND VAC, WITH PLANS FOR CLOSURE BY SECONDARY INTENTION. OF NOTE: NO PURULENCE WAS APPRECIATED THROUGHOUT THE ABDOMEN, FASCIA, SUBCUTANEOUS TISSUE. PERITONEAL AND BLOOD TINGED FLUID ONLY VISUALIZED THROUGHOUT THE PROCEDURE. NO CULTURES WERE TAKEN FROM FLUID. ALL COUNTS WERE CORRECT X3. ERYTHEMA INFERIOR TO THE WOUND THAT WAS VISUALIZED PREOPERATIVELY HAD SIGNIFICANTLY IMPROVED FROM THE AREA THAT HAD BEEN PREVIOUSLY MARKED FOR CELLULITIS. THE PATIENT WAS STABILIZED AND TAKEN TO PACU FOR RECOVERY. PATIENT WAS CONTINUED ON IV VANC/ZOSYN. DR. DAS WAS PRESENT FOR THE DEBRIDEMENT OF FASICAL EDGES AND CLOSURE OF THE FASCIA USING LOOP 0-PDS SUTURE. HIS ASSISTANCE WAS VITAL IN COMPLETE VISUALIZATION AND CLOSURE OF THIS CASE. ILEANA SPENCER MD OBN
--- NOTE | 2019-02-09 17:22 | OB/GYN Progress Note ---
Date of Encounter: 02/09/19 Time of Encounter: 17:15 - Assessment and Plan (1) Abdominal pain Current Visit: Yes Status: Acute 18YO POD#6 FROM EMERGENT PLTCS, POD#0 FROM WOUND DEBRIDEMENT 2/2 FASCIAL WOUND DEHISCENCE 1. WOUND DEHISCENCE - CONTINUE IV VANC/ZOSYN (DAY 1), COMPLETED 1 DAY OF AMP/GENT/CLINDA - WOUND VAC PLACED, PLAN FOR CLOSURE BY SECONDARY INTENTION - GENERAL SURGERY CURBSIDED INTRAOPERATIVELY, WILL NEED CONSULTATION AT 0800 ON 02/10 - OK TO TRANSITION PATIENT TOLERATED TO PO WHEN ABLE - CONTINUE MIVF AT 125ML/HR UNTIL TOLERATING PO - PAIN REGIMEN: PO OXYCODONE Q6-8HR NEEDED FOR PAIN, IBUPROFEN/TYLENOL SCHEDULED - BOWEL REGIMEN: IV ZOFRAN, IV PEPCID - LABS QAM: CHEM, CBC DISPO: CONTINUE VANC/ZOSYN (DAY 1), CONSULTATION TO BE PLACED TO GENERAL SURGERY TOMORROW AM (0800), DR. RUFFIN HAS BEEN MADE AWARE AND WAS CURBSIDED INTRAOPERATIVELY. MD TJ Qualifiers: Abdominal location: generalized Qualified Code(s): R10.84 - Generalized abdominal pain Subjective - Subjective Principal diagnosis: WOUND DEHISCENCE Interval history: 18YO POD#6 S/P PLTCS AT TERM FOR NRFWB, AND NOW POD#0 FROM TAKE BACK WOUND DEBDRIGEMENT FOR INFECTION AND WOUND DEHISCENCE. DELIVERY WAS PERFORMED BY CS AFTER PATEINT WAS DILATED TO 9CM WITH MECONIUM STAINED FLUID. TERMINAL BRADYCARDIA, STAT WAS CALLED. PFANNENSTIEL SKIN AND LOW TRANSVERSE DELIVERY WAS PERFORMED AT THAT TIME. SKIN CLOSED BY IVANNA WITH EMY DRESSING PLACED TO SUCTION. PATIENT WAS DISCHARGED TO HOME AND READMITTED ON POD#5 TO . ON POD#4 (PM) THE PATIENT WAS SEEN IN THE ED AND HAD A CT SCAN PERFORMED WITH AN IMPRESSION BY RADIOLOGY FOR ABDOMINAL AIR VERSUS ABSCESS ALONG THE PFANNENSTIEL SKIN INCISION. EMY WAS REMOVED UPON ADMISSION TO APPLIANCE WORKER/ SERVICE ON POD#5 AT ~0300. NO DEFORMITY WAS APPRECIATED ALONG THE STAPLE CLOSED PFANNENSTIEL. MINIMAL ERYTHEMA VISUALIZED ABX WERE TRANSITIONED FROM VANC/ZOSYN TO IV AMP/GENT/CLINDA WITH CONCERN FOR POTENTIAL ENDOMETRITIS. AT ~0500 THIS AM (POD#6), PATIENT WAS LEAKING COPIOUS AMOUNTS OF NON-PURULENT SERO-SANGUINOUS APPEARING FLUID FROM THE R ANGLE OF INCISION, ~400ML DOCUMENTED BY NURSING. INFORMATION REGARDING LEAKING FROM WOUND WAS SIGNED OUT TO ON-CALL MD (TJ) AND AT 0800 WE WERE ABLE TO EVALUTE HER SKIN INCISION. THERE WAS OBVIOUS SEROUS FLUID APPRECIATED AND CONCERN FOR A RUPTURED SEROMA WAS VOICED AND NOTED. IVANNA WERE REMOVED AND THE LINING FASCIA WAS PROBED WITH A R ANGLED DEFECT APPRECIATED. WE ATTEMPTED TO PACK HER INCISION ON THE R HOWEVER WITH 1" IODOFORM PACKING TAPE - HOWEVER SHE CONTINUED TO LEAK PERITONEAL APPEARING FLUID. IT WAS AT THIS TIME WE WERE ABLE TO PROBE A DEFECT GREATER THAN 8CM AT THE R ANGLE OF THE INCISION. [facility] AND CONSENT WAS SIGNED FOR WOUND DEBRIDEMENT FOR LIKELY WOUND DEHISCENCE AND INFECTION. FAMILY WAS CONTACTED AND ANESTHESIA WAS MADE AWARE. ILEANA SPENCER MD Patient reports: pain poorly controlled, nauseated Objective - Vital Signs Latest vital signs: Vital Signs Temp Pulse Pulse Resp BP Pulse Ox 02/09/19 16:57 69 16 02/09/19 16:48 98.2 F 67 16 114/66 97 02/09/19 16:38 97.9 F 73 18 112/66 96 02/09/19 16:28 76 18 116/71 94 02/09/19 16:18 79 20 117/69 94 02/09/19 16:08 98.6 F 90 26 112/57 97 02/09/19 13:49 97.9 F 69 16 129/80 95 02/09/19 11:30 97 16 02/09/19 09:46 98.5 F 75 75 12 111/61 96 02/09/19 04:43 98.9 F 90 16 104/57 97 02/09/19 01:27 99.7 F H 84 15 121/68 96 02/08/19 21:22 98.6 F 94 16 113/70 98 Intake and Output 02/09/19 02/09/19 02/09/19 07:59 15:59 23:59 Intake Total 1352.5 / 1352.5 Output Total 250 / 505 100 / 505 155 / 505 Balance 1102.5 / 847.5 -100 / 847.5 -155 / 847.5 Intake: IV Fluids 1352.5 / 1352.5 Lactated Ringers 1,000 ML @ 125 1000 / 1000 mls/hr IVC .Q8H DOMENICO Rx#: [id number] Ampicillin 2 GM In 0.9 % Sodium 200 / 200 Chloride (Mini-Bag +) 100 ML @ 200 mls/hr IVPB Q4HR DOMENICO Rx#: [id number] Cleocin Premix 900 MG/50 ML 900 50 / 50 mg In 50 ml @ 50 mls/hr IVPB Q8HR DOMENICO Rx#:[id number] Garamycin 100 MG In 0.9 % 102.5 / 102.5 Sodium Chloride 100 ML @ 98.558 mls/hr IVPB Q8H DOMENICO Rx#: [id number] Oral 0 / 0 Output: Urine 100 / 100 Estimated Blood Loss 5 / 5 Other 250 / 250 Urine Amount (Catheter) 150 / 150 Other: Stool Characteristics Normal for Patient # Voids 2 - I&O's I&O's: Intake & Output 02/06/19 02/07/19 02/08/19 02/09/19 23:59 23:59 23:59 23:59 Intake Total 1100 / 1100 3900 / 3900 1352.5 / 1352.5 Output Total 1300 / 1300 505 / 505 Balance 1100 / 1100 2600 / 2600 847.5 / 847.5 Weight 108.409 kg - Exam Extremities: Present: normal Abdomen: Present: tenderness Incision OB: Present: erythematous, edematous, skin , warm - Labs Labs: Abnormal lab results WBC 15.5 K/mcL (4.3-11.1) H 02/09/19 05:20 RBC 3.04 M/mcL (3.82-4.97) L 02/09/19 05:20 Hgb 8.8 g/dL (11.5-15.4) L D 02/09/19 05:20 Hct 26.6 % (35.3-44.9) L 02/09/19 05:20 Neutrophils # 9.3 K/mcL (1.6-8.9) H 02/07/19 20:31 Sodium 134 mEq/L (136-145) L 02/07/19 20:31 Carbon Dioxide 21 mEq/L (23-29) L 02/07/19 20:31 Creatinine 0.50 mg/dL (0.60-1.20) L 02/09/19 09:35 BUN/Creatinine Ratio 32 (6-26) H 02/07/19 20:31 Glucose 106 mg/dL (70-105) H 02/09/19 09:35 Calculated Osmolality 279 (280-300) L 02/07/19 20:31 Calcium 8.1 mg/dL (8.6-10.3) L 02/09/19 09:35 Serum Total Protein 6.3 g/dL (6.4-8.9) L 02/07/19 20:31 Albumin 3.0 g/dL (3.5-5.7) L 02/07/19 20:31 Albumin/Globulin Ratio 0.9 (1.1-2.2) L 02/07/19 20:31 Lipase < 3 Units/L (11-82) L 02/07/19 20:31 Beta HCG, Quant 59 mIU/mL (Less than 5) H 02/07/19 20:31 Urine Clarity Cloudy (Clear) A 02/07/19 20:05 Ur Specific [place] > 1.030 (1.010-1.025) H 02/07/19 20:05 Urine Protein 100 mg/dL (Neg-Trace) H 02/07/19 20:05 Urine Ketones Trace mg/dL (Negative) H 02/07/19 20:05 Urine Blood Large (Negative) H 02/07/19 20:05 Urine Bilirubin Small (Negative) H 02/07/19 20:05 Urine Urobilinogen >=8.0 mg/dL (Normal) H 02/07/19 20:05 Ur Leukocyte Esterase Large (Negative) H 02/07/19 20:05 Urine Microscopic RBC 15-30 per hpf (0-3) H 02/07/19 20:05 Urine Microscopic WBC TNTC per hpf (0-3) H 02/07/19 20:05 Ur Squamous Epith Cells Many per lpf (None-Few) H 02/07/19 20:05 Urine Bacteria Moderate per hpf (None-Few) H 02/07/19 20:05 Ur Culture Indicated? YES (NO) A 02/07/19 20:05 Urine Test Positive (Negative) A 02/07/19 20:05 Gentamicin Peak 4.2 mcg/mL (5.0-10.0) L 02/09/19 09:35 Consult Discharge Plan - Plan Referrals: Erin Maradiaga CNP [Primary Care Provider] -
[2019-02-09] MEDS ORDERED: Aminoglycoside Consult 1 EACH MC ONE (17:45)
[2019-02-09] MEDS: Piperacillin/Tazobactam 3.375 GM in 0.9 % Sodium Chloride Mini Bag 100 ML IVPB SCH (18:01)
[2019-02-09] MEDS ORDERED: Famotidine 20 MG TABLET PO SCH (21:00)
[2019-02-09] MEDS: Albuterol 2.5 MG/3 ML NEBULIZER IH PRN (23:23)
[2019-02-10] MEDS: Piperacillin/Tazobactam 3.375 GM in 0.9 % Sodium Chloride Mini Bag 100 ML IVPB SCH ×2 (01:31→09:25)
[2019-02-10] MEDS: *HR* OxyCODONE/APAP 5/325 TABLET PO PRN ×2 (03:34→08:47)
[2019-02-10] MEDS: Albuterol 2.5 MG/3 ML NEBULIZER IH PRN ×3 (03:46→11:14)
[2019-02-10 06:06] LABS: Basophils % 0.2 %; Eosinophils # 0.1 K/mcL (0.0-0.6); Eosinophils % 0.6 %; Hematocrit 25.4 % (35.3-44.9); Hemoglobin 8.4 g/dL (11.5-15.4); Lymphocytes # 2.2 K/mcL (0.6-4.6); Mean Corpuscular HGB Conc 33.1 g/dL (31.6-35.5); Mean Corpuscular Hemoglobin 29.2 pg (28.0-33.3); Mean Corpuscular Volume 88.2 fL (83.0-100.0); Mean Platelet Volume 9.9 fL (9.4-12.4); Monocytes # 0.8 K/mcL (0.0-1.3); Monocytes % 6.2 %; Neutrophils # 9.1 K/mcL (1.6-8.9); Platelet Count 323 K/mcL (140-400); Red Blood Count 2.88 M/mcL (3.82-4.97); Red Cell Distribution Width 13.4 % (11.5-14.5); White Blood Count 12.6 K/mcL (4.3-11.1)
[2019-02-10 06:28] LABS: BUN/Creatinine Ratio 19 (6-26); Blood Urea Nitrogen 10 mg/dL (6-20); Calcium 8.1 mg/dL (8.6-10.3); Carbon Dioxide 26 mEq/L (23-29); Chloride 103 mEq/L (98-107); Glucose 117 mg/dL (70-105); Osmolality,Calculated 288 (280-300); Potassium 3.6 mEq/L (3.5-5.1); Sodium 139 mEq/L (136-145); eGFR For African Americans > 60; eGFR For Non-African Americans > 60
[2019-02-10] MEDS ORDERED: Ibuprofen 600 MG TABLET PO PRN (08:36)
--- NOTE | 2019-02-10 08:43 | Discharge Summary ---
Outpatient Proc Discharge Plan - Plan Prescriptions: Amoxicillin/Clavulanate [Augmentin] 875 mg PO BIDWM #20 tablet Clindamycin [Cleocin] 150 mg PO Q8H #30 capsule Home Medications: BuPROPion XL (24 HR) [Wellbutrin Xl] 150 mg PO DAILY #60 tab.er.24h 02/05/19 [Rx] Docusate [Colace] 100 mg PO BID #30 capsule 02/05/19 [Rx] Ferrous Sulfate 325 mg PO 0800 #30 tablet 02/05/19 [Rx] Ibuprofen [Motrin] 600 mg PO Q6HR PRN #60 tablet 02/05/19 [Rx] OxyCODONE/APAP 5/325 [Percocet 5/325 MG] 1 each PO Q4HR PRN 5 Days #20 tablet 02/05/19 [Rx] Simethicone [Gas-X] 80 mg PO TID PRN tab.chew 02/05/19 [Rx] Pnv95/Ferrous Fumarate/FA [ Vitamin Tablet] 1 each PO DAILY 02/08/19 [History] Amoxicillin/Clavulanate [Augmentin] 875 mg PO BIDWM #20 tablet 02/10/19 [Rx] Clindamycin [Cleocin] 150 mg PO Q8H #30 capsule 02/10/19 [Rx]
--- NOTE | 2019-02-10 08:49 | OB/GYN Progress Note ---
Date of Encounter: 02/10/19 Time of Encounter: 08:47 - Assessment and Plan (1) delivery delivered Current Visit: No Status: Acute Pt s/p wound dehiscence and now s/p repair of fascia and wound healing by secondary intention with wound vac in place. Will consult wound clinic to assist. Spoke with Dr. Gallego and will d/c home on Augmentin and Clinda. Subjective - Subjective Principal diagnosis: POD#7 Interval history: Pt feeling better, desires d/c home b/c misses baby. States pain is not well controlled on Percocet but was controlled on "Oxycodone". Will add Motrin. Hasn't been able to void yet s/p cath removal at 3:45. Objective - Vital Signs Latest vital signs: Vital Signs Temp Pulse Pulse Resp BP Pulse Ox 02/10/19 08:26 98.4 F 92 20 124/68 94 02/10/19 07:53 18 93 02/10/19 03:46 18 94 02/10/19 03:45 98.8 F 74 18 126/68 94 02/10/19 01:44 71 18 95 02/09/19 23:26 18 94 02/09/19 23:15 98.3 F 67 20 128/68 95 02/09/19 20:15 98.1 F 100 18 113/57 97 02/09/19 18:50 98.6 F 72 12 112/56 90 02/09/19 17:48 63 16 117/65 97 02/09/19 17:18 63 16 116/65 97 02/09/19 16:57 69 16 02/09/19 16:48 98.2 F 67 16 114/66 97 02/09/19 16:38 97.9 F 73 18 112/66 96 02/09/19 16:28 76 18 116/71 94 02/09/19 16:18 79 20 117/69 94 02/09/19 16:08 98.6 F 90 26 112/57 97 02/09/19 13:49 97.9 F 69 16 129/80 95 02/09/19 11:30 97 16 02/09/19 09:46 98.5 F 75 75 12 111/61 96 Intake and Output 02/09/19 02/10/19 02/10/19 23:59 07:59 15:59 Intake Total 340 / 2942.5 550 / 550 Output Total 605 / 955 1280 / 1280 Balance - / 1986.5 -730 / -730 Intake: IV Fluids 100 / 2702.5 350 / 350 Zosyn 3.375 GM In 0.9 % Sodium 100 / 100 100 / 100 Chloride (Mini-Bag +) 100 ML @ 25 mls/hr IVPB Q8H DOMENICO Rx#: [id number] Vancocin 1,250 MG In 0.9 % 250 / 250 Sodium Chloride 250 ML @ 166.67 mls/hr IVPB Q12H DOMENICO Rx#: [id number] Oral 240 / 240 200 / 200 Output: Estimated Blood Loss 5 / 5 Urine Amount (Catheter) 150 / 150 Catheter 450 / 450 1200 / 1200 Wound Drainage 80 / 80 Lower [place] 40 / 40 Lower abdomen 40 / 40 - I&O's I&O's: Intake & Output 02/07/19 02/08/19 02/09/19 02/10/19 23:59 23:59 23:59 23:59 Intake Total 1100 / 1100 3900 / 3900 2942.5 / 2942.5 550 / 550 Output Total 1300 / 1300 955 / 955 1280 / 1280 Balance 1100 / 1100 2600 / 2600 / 5 -730 / -730 Weight 108.409 kg - Exam Lungs: bilateral: normal Chest: Normal S1, Normal S2 Extremities: Present: normal Abdomen: Present: soft, tenderness (appropriate) Incision OB: Present: dressed (with wound vac) - Labs Labs: Abnormal lab results WBC 12.6 K/mcL (4.3-11.1) H 02/10/19 05:40 RBC 2.88 M/mcL (3.82-4.97) L 02/10/19 05:40 Hgb 8.4 g/dL (11.5-15.4) L 02/10/19 05:40 Hct 25.4 % (35.3-44.9) L 02/10/19 05:40 Neutrophils # 9.1 K/mcL (1.6-8.9) H 02/10/19 05:40 Sodium 134 mEq/L (136-145) L 02/07/19 20:31 Carbon Dioxide 21 mEq/L (23-29) L 02/07/19 20:31 Creatinine 0.54 mg/dL (0.60-1.20) L 02/10/19 05:40 BUN/Creatinine Ratio 32 (6-26) H 02/07/19 20:31 Glucose 117 mg/dL (70-105) H 02/10/19 05:40 Calculated Osmolality 279 (280-300) L 02/07/19 20:31 Calcium 8.1 mg/dL (8.6-10.3) L 02/10/19 05:40 Serum Total Protein 6.3 g/dL (6.4-8.9) L 02/07/19 20:31 Albumin 3.0 g/dL (3.5-5.7) L 02/07/19 20:31 Albumin/Globulin Ratio 0.9 (1.1-2.2) L 02/07/19 20:31 Lipase < 3 Units/L (11-82) L 02/07/19 20:31 Beta HCG, Quant 59 mIU/mL (Less than 5) H 02/07/19 20:31 Urine Clarity Cloudy (Clear) A 02/07/19 20:05 Ur Specific [place] > 1.030 (1.010-1.025) H 02/07/19 20:05 Urine Protein 100 mg/dL (Neg-Trace) H 02/07/19 20:05 Urine Ketones Trace mg/dL (Negative) H 02/07/19 20:05 Urine Blood Large (Negative) H 02/07/19 20:05 Urine Bilirubin Small (Negative) H 02/07/19 20:05 Urine Urobilinogen >=8.0 mg/dL (Normal) H 02/07/19 20:05 Ur Leukocyte Esterase Large (Negative) H 02/07/19 20:05 Urine Microscopic RBC 15-30 per hpf (0-3) H 02/07/19 20:05 Urine Microscopic WBC TNTC per hpf (0-3) H 02/07/19 20:05 Ur Squamous Epith Cells Many per lpf (None-Few) H 02/07/19 20:05 Urine Bacteria Moderate per hpf (None-Few) H 02/07/19 20:05 Ur Culture Indicated? YES (NO) A 02/07/19 20:05 Urine Test Positive (Negative) A 02/07/19 20:05 Gentamicin Peak 4.2 mcg/mL (5.0-10.0) L 02/09/19 09:35 Consult Discharge Plan - Plan Referrals: Erin Maradiaga CNP [Primary Care Provider] - Prescriptions: Amoxicillin/Clavulanate [Augmentin] 875 mg PO BIDWM #20 tablet Clindamycin [Cleocin] 150 mg PO Q8H #30 capsule
[2019-02-10] MEDS ORDERED: BuPROPion XL (24 HR) 150 MG TABLET PO SCH (12:17)
[2019-02-10 12:30] VITALS: BP 123/74
[2019-02-10] MEDS: Ringers Solution, Lactated 1,000 ML IVC SCH (16:13)
[2019-02-10] MEDS ORDERED: Aminoglycoside Consult 1 EACH MC ONE (17:45)
--- NOTE | 2019-02-12 11:12 | Electrocardiograph Report ---
[place] [employer] [facility] Test Date: 2019-02-07 Pat Name: Carrie Thorne Department: [id number] Room: 1N2 Gender: F Apn: : 2000 Requested By: Piper Luz Order Number: [id number] Reading MD: Oleg Granger Measurements Intervals [place] Rate: 109 P: 72 WV: 136 QRS: 43 QRSD: 84 T: 26 QT: 317 QTc: 427 Interpretive Statements Sinus tachycardia Electronically Signed On 02-12-2019 11:10:49 EDT by Oleg Granger
== END 2019-02-10 17:46 | disposition home or self-care (01) ==
LOC: EMEROOARM 19:14 → 3BNU 19:14 → 1NENUOBS 02-08 04:05 → 1NENUPED 02-08 04:17
PROVIDERS: ADMIT Student in an Organized Health Care Education/Training Program; ATTEND Student in an Organized Health Care Education/Training Program